=== PATIENT | female | born 1955 | race Caucasian/White ===

== ENCOUNTER 2018-06-24 03:30 | Inpatient (IN) | payer MEDICAID ==
[~2018-06-24] VITALS: Ht 157.5 cm; Wt 66.2 kg
--- NOTE | 2018-06-24 12:00 | NUR ---
PATIENT ON UNIT RECEIVED PATIENT FROM [facility], PATIENT WAS A DIRECT ADMIT FROM [facility]. PATIENT IS ALERT AND ORIENTED X4, ABLE TO MAKE NEEDS KNOWN. NO SIGNS OF DISTRESS NOTED AT THIS TIME, BREATHING EVEN AND UNLABORED. PATIENT HAS IV IN RIGHT FOREARM 20 GAUGE, SALINE LOCK. GAIT STABLE. INSTRUCTED PATIENT TO USE CALL [facility] IF ASSISTANCE IS NEEDED, PATIENT VERBALIZED UNDERSTANDING. CALL [facility] WITHIN REACH, WILL CONTINUE TO MONITOR.
[2018-06-24 12:17] VITALS: BP_SYST 124
[2018-06-24] MEDS ORDERED: GLIP10TA11 PO (12:36)
[2018-06-24] MEDS ORDERED: SERT100T PO (12:36)
[2018-06-24] MEDS ORDERED: OXYC20TA55 PO (12:36)
[2018-06-24] MEDS ORDERED: SITA1TAB6 PO (12:36)
[2018-06-24] MEDS ORDERED: QUET200T PO (12:36)
[2018-06-24] MEDS ORDERED: ENAL10TA75 PO (12:36)
--- NOTE | 2018-06-24 12:45 | NUR ---
ROUNDS ASSESSMENT COMPLETE, PATIENT IN STABLE CONDITION, DR. SAMUEL PAGEJosselyn FOR ADMISSION ORDERS.
--- NOTE | 2018-06-24 13:12 | NUR ---
ATTENDING MD DR SAMUEL WAS CALLED RE: ADMITTING ORDERS. SPOKE TO SARI.
--- NOTE | 2018-06-24 13:15 | NUR ---
DR. SAMUEL INFORMED DR. SAMUEL THAT [facility] FOLLOWED HOSPITAL PROTOCOL AND DID LACTIC ACID X 2 2.8 THEN 2.0, 3L BOLUS GIVEN, AND ROCEPHIN 1GM GIVEN. STAT ORDERS FOR CBC, BMP, CULTURES GIVEN.
[2018-06-24] MEDS: PIPERACILLIN/TAZO 3.375/DEX-IS 50 ML IV SCH ×2 (14:17→17:07)
[2018-06-24 14:35] LABS: CALCIUM 8.2 mg/dL (8.4-11.0); CREATININE 0.53 mg/dL (0.55-1.30); POTASSIUM 4.3 mmol/L (3.5-5.1)
[2018-06-24 15:01] LABS: HEMATOCRIT 32.4 % (36-48); HEMOGLOBIN 10.9 g/dL (12.0-16.0); MEAN CORPUSCULAR VOLUME 93 fL (79.0-98.0); RED BLOOD CELL COUNT(AUTO) 3.49 MIL/uL (4.2-6.2); WHITE BLOOD COUNT (AUTO) 4.9 K/uL (4.8-10.8)
[2018-06-24 15:02] LABS: BASOPHILS % (AUTO) 0.2 % (0.0-2.0); EOSINOPHILS # (AUTO) 0.1 K/uL (0.0-0.4); EOSINOPHILS % (AUTO) 1.2 % (0.0-4.0); LYMPHOCYTES # (AUTO) 1.8 K/uL (1.0-5.5); LYMPHOCYTES % (AUTO) 35.8 % (20.5-51.5); MEAN CORPUSCULAR HEMOGLOBIN 31 pg (27-31); MEAN CORPUSCULAR HGB CONC 34 % (32-36); MONOCYTES # (AUTO) 0.4 K/uL (0.0-1.0); MONOCYTES % (AUTO) 7.4 % (1.7-9.3); NEUTROPHILS # (AUTO) 2.7 K/uL (1.8-7.7); NEUTROPHILS % (AUTO) 55.4 % (40.0-70.0); PLATELET COUNT (AUTO) 240 K/uL (130-430)
[2018-06-24] MEDS ORDERED: ACETAMINOPHEN 325 MG TABLET PO PRN (15:15)
[2018-06-24] MEDS ORDERED: MORPHINE 4 MG/ML INJ. SYRINGE IVP PRN (15:15)
[2018-06-24] MEDS ORDERED: METOCLOPRAMIDE HCL 10 MG/2 ML VIAL IVP PRN (15:15)
[2018-06-24] MEDS ORDERED: ONDANSETRON HCL 4 MG/2 ML VIAL IVP PRN (15:15)
[2018-06-24] MEDS: MORPHINE 4 MG/ML INJ. SYRINGE IVP PRN ×2 (16:01→20:40)
[2018-06-24 16:02] VITALS: BP_SYST 106
--- NOTE | 2018-06-24 16:05 | NUR ---
ROUNDS PATIENT GIVEN PRN PAIN MEDICATION FOR BACK PAIN, NO OTHER NEEDS AT THIS TIME, WILL CONTINUE TO MONITOR.
[2018-06-24] MEDS: metFORMIN HCL 500 MG TABLET PO SCH (17:07)
--- NOTE | 2018-06-24 17:19 | NUR ---
PAGED DR. UMAÑA PAGED REGARDING PATIENTS GLUCOSE LEVELS OF 166, NO COVERAGE ORDERED AT THIS TIME.
--- NOTE | 2018-06-24 18:37 | NUR ---
CLOSING NOTE PAGED DR. SMITH AGAIN TO GET ORDER FOR SLIDING SCALE, PATIENT CURRENTLY RESTING IN BED, NO SIGNS OF DISTRESS NOTED AT THIS TIME, BREATHING EVEN AND UNLABORED. CALL [facility] WITHIN REACH, BED IN LOWEST POSITION, WILL ENDORSE PATIENT TO BAG MACHINE HELPER NURSE. WILL HAVE BAG MACHINE HELPER FOLLOW UP WITH REGARDING SLIDING SCALE.
--- NOTE | 2018-06-24 18:37 | NUR ---
PAGED PAGED THE REVERSE UNIT OPERATOR PHYSICIAN DR. UMAÑA FOR ORDERS
--- NOTE | 2018-06-24 18:49 | NUR ---
DR. UMAÑA ORDERS GIVEN FOR SLIDING SCALE WITH REGULAR INSULIN, STATED TO START INSULIN COVERAGE AT NEXT ACCU-CHECK.
[2018-06-24 19:05] VITALS: BP_SYST 102
--- NOTE | 2018-06-24 19:30 | NUR ---
OPENING NOTES: Received pt in bed [place] speaking patient AAOx4, denies any pain and SOB. Patients at bedside. Plan of care discussed with the pt and family member. Verbalized understanding. Not in acute distress. Call light within reach.
[2018-06-24 20:00] VITALS: BP_SYST 102
[2018-06-24] MEDS: ENALAPRIL MALEATE 10 MG TABLET (VASOTEC) PO SCH (20:29)
[2018-06-24] MEDS ORDERED: [UNRECOGNIZED DRUG - OTHER] PO SCH (21:00)
[2018-06-24] MEDS ORDERED: QUEtiapine FUMARATE 100 MG TABLET PO SCH (21:00)
[2018-06-24] MEDS ORDERED: METFORMIN HCL PO SCH (21:00)
[2018-06-24] MEDS ORDERED: SITAGLIPTIN PHOS PO SCH (21:00)
--- NOTE | 2018-06-24 21:30 | NUR ---
ROUNDING: Pt asleep. Pt's at bedside. No discomfort noted. Call light within reach.
[2018-06-24] MEDS: INSULIN REGULAR, HUMAN 100 UNITS/ML, 10 ML VIAL (novoLIN R) SUBCUT PRN (22:05)
--- NOTE | 2018-06-24 23:02 | NUR ---
ROUNDING: Pts blood sugar 176, 2 units of Novolin R SQ given. Snacks provided to the patient. Will monitor.
[2018-06-25] MEDS: PIPERACILLIN/TAZO 3.375/DEX-IS 50 ML IV SCH ×3 (01:57→11:15)
--- NOTE | 2018-06-25 04:00 | NUR ---
ROUND: Pt asleep, easily arousable. Pt denies pain. Respiration even and unlabored. All needs attended. Not in acute distress. Call light within reach.
--- NOTE | 2018-06-25 04:00 | NUR ---
Pt asleep , No discomfort noted. Pt's at bedside. Not in acute distress. Call light wthin reach.
[2018-06-25] MEDS: INSULIN REGULAR, HUMAN 100 UNITS/ML, 10 ML VIAL (novoLIN R) SUBCUT PRN (06:07)
--- NOTE | 2018-06-25 06:28 | NUR ---
CLOSING NOTES: Pt asleep, easily arousable. Denies pain and SOB. Not in acute distress. Call light within reach.
--- NOTE | 2018-06-25 07:40 | NUR ---
AM rounds: Patient is oriented x4. Complaints of 8/10 sharp pain on lower back and neck. Patient states she has been diagnosed with herniated disc. Can't remember the name of the neurosurgeon that saw her as outpatient. Call light within reach.
[2018-06-25] MEDS: metFORMIN HCL 500 MG TABLET PO SCH (08:08)
[2018-06-25] MEDS: MORPHINE 4 MG/ML INJ. SYRINGE IVP PRN (08:09)
[2018-06-25 08:16] VITALS: BP_SYST 115
[2018-06-25] MEDS ORDERED: SERTRALINE HCL 50 MG TABLET PO SCH (09:00)
[2018-06-25 11:17] VITALS: BP_SYST 126
[2018-06-25] MEDS: ENALAPRIL MALEATE 10 MG TABLET (VASOTEC) PO SCH (11:26)
--- NOTE | 2018-06-25 11:31 | NUR ---
Rounds: Pain level is 7/10 , patient states it is tolerable for her as long she does not move a lot. Encouraged patient to ask for pain medicine when needed.
[2018-06-25] MEDS ORDERED: LEVO750T45 PO (12:12)
[2018-06-25 12:13] VITALS: BP_SYST 126
--- NOTE | 2018-06-25 12:40 | NUR ---
D/C Patient Patient given medication reconciliation form and D/C instructions. Exit Care provided. Patient verbalized understanding. MD discussed with patient the results and treatment provided. Ambulatory with steady gait for discharge to home. Patient in stable condition, ID band removed. IV catheter removed, intact and dressing applied, no active bleeding. Rx of LEVAQUIN 500MG X 10 DAYS given. Patient educated on pain management. All belongings sent with patient.
== END 2018-06-25 12:40 | disposition home or self-care (01) | DRG 463 ==
LOC: STU 11:48
PROVIDERS: ADMIT Internal Medicine; ATTEND Internal Medicine
DX: N12 Tubulo-interstitial nephritis, not specified as acute or chronic (principal); E11.9 Type 2 diabetes mellitus without complications; I10 Essential (primary) hypertension; Z90.49 Acquired absence of other specified parts of digestive tract
CPT/HCPCS: 36415; 80048; 82962; 83605; 85025; 87040-TC; G0378; J2270; J2543; J7040